=== PATIENT | male | born 1930 | race Caucasian/White ===

== ENCOUNTER 2021-10-29 13:33 | Emergency (ER) | payer MEDICARE, OTHER ==
[2021-10-29 13:56] VITALS: BP 137/63; PULSE 71
== END 2021-10-29 15:30 | disposition home or self-care (01) ==
LOC: JP.ED 13:33
DX: B37.0 Candidal stomatitis (principal); Z79.899 Other long term (current) drug therapy; Z79.82 Long term (current) use of aspirin
CPT/HCPCS: 87081; 87880-QW; 99282; 99283